=== PATIENT | male | born 1940 | race African-American/Black ===

== ENCOUNTER 2019-09-13 08:43 | Inpatient (IN) ==
[2019-09-13] MEDS ORDERED: CATAPRES PO ONE (09:45)
--- NOTE | 2019-09-13 09:51 | PROVIDER DOCUMENTATION ---
HPI-Screening - General Chief Complaint: B/P Problems Stated Complaint: HIGH BP,DIZZINESS Time Seen by Provider: 09/13/19 09:47 Source: patient, family Allergies/Adverse Reactions: Allergies Allergy/AdvReac Type Severity Reaction Status Date / Time No Known Allergies Allergy Verified 01/12/13 12:01 Home Medications: Home Medication List Medication Instructions Recorded Confirmed Last Taken Type Amlodipine [Norvasc] 2.5 mg PO DAILY 01/12/13 01/12/13 Unknown History Diclofenac Potassium [Cataflam] 50 mg PO TID 01/12/13 01/12/13 Unknown History Methylprednisolone [Medrol Dosepak] 4 mg PO DIRECTED 01/12/13 01/12/13 Unknown History Omeprazole [Prilosec] 20 mg PO DAILY@0700 01/12/13 01/12/13 Unknown History SIMVAstatin [Zocor] 20 mg PO QHS 01/12/13 01/12/13 Unknown History Patient arrived via EMS?: No HPI: Pt. is 79 yom that presents with c/o HTN, blurred vision. He reports he went to [facility] and his blood pressure was high even after taking his medications. Physical Exam-Screening - CONSTITUTIONAL General Appearance: alert, no apparent distress, thin. negative: lethargic, slow to respond, combative - EYES Eyes: PERRL/EOMI, pink conjunctivae - RESPIRATORY Respiratory: lungs clear, normal breath sounds - MUSCULOSKELETAL Back Exam: normal inspection, no CVA tenderness Extremity: normal range of motion, non-tender, normal gait, normal inspection. negative: erythema, swelling, tenderness Peripheral Pulses: radial (R): 2+, radial (L): 2+ - SKIN Integumentary: normal color, normal turgor, warm/dry - NEUROLOGIC Neurologic: grossly normal, no motor/sensory deficits. negative: aphasia, facial droop, focal weakness, motor weakness, sensory deficit Screening Depart - Departure ED Screening Disposition: Continued in ED for Treatment Date of Disposition Decision: 09/13/19 Time of Disposition Decision: 09:50 DIAGNOSIS: HTN (hypertension) Qualifiers: Hypertension type: essential hypertension Qualified Code(s): I10 - Essential (primary) hypertension Disposition: STILL A PATIENT 30 Certified Medical Emergency: Emergent Condition: Stable Referrals and Follow-Ups: Nikki Ramos MD [Primary Care Provider] - Attestation - Physician/ BERT Attestation Patient care was provided by Advanced Practice Provider:: Yes Advanced Practice Provider:: Aleida Newsome Advanced Practice Provider documentation review:: The Mid-level provider documentation, treatment plan and medical decision making was reviewed by the physician who agrees with all treatment and medical decision making by the MLP. The physician spent face to face time with patient:: No Advanced Practice Provider documentation review:: Supervising physician onsite and consulted in the evaluation and care of this patient. The physician did not have a face to face encounter with the patient.
[2019-09-13 10:31] LABS: URINE SOURCE CLEAN CATCH
[2019-09-13 10:33] LABS: BILIRUBIN URINE NEGATIVE (NEGATIVE); BLOOD URINE NEGATIVE (NEGATIVE); COLOR YELLOW; GLUCOSE URINE NEGATIVE (NEGATIVE); KETONE URINE NEGATIVE (NEGATIVE); LEUKOCYTES URINE NEGATIVE (NEGATIVE); NITRITE URINE NEGATIVE (NEGATIVE); PH URINE 6.5; PROTEIN URINE TRACE mg/dL (NEGATIVE); SP GRAVITY URINE 1.026; TURBIDITY URINE CLEAR (CLEAR); UROBILINOGEN URINE NORMAL (NORMAL)
[2019-09-13 10:35] LABS: UR EPITHELIAL CELLS <10 /HPF (<10); URINE BACTERIA NEGATIVE /HPF; URINE RBC <10 /HPF (<10); URINE WBC <10 /HPF (<10)
[2019-09-13 10:36] LABS: BASO# 0.03 X1000 (0.0-0.2); BASO% 0.5 % (0.0-0.8); EOS# 0.17 X1000 (0.0-0.7); HEMATOCRIT 35.3 % (42.0-52.0); HEMOGLOBIN 11.1 g/dL (14.0-18.0); LYMPH% 28.3 % (20.5-51.1); MCH 26.9 PG (27-31); MCHC 31.4 g/dL (33-37); MCV 85.5 FL (81-99); MONO# 0.39 X1000 (0.11-0.59); MONO% 6.9 % (1.7-9.3); NEUT# 3.46 X1000 (1.4-6.5); NEUT% 61.3 % (42.2-75.2); PLT 325 X1000 (130-400); RBC 4.13 XMIL (4.7-6.1); RDW 13.8 % (11.5-14.5); WBC 5.65 X1000 (4.8-10.8)
[2019-09-13 11:05] LABS: AGAP 14; ALB/GLOB RATIO 1.5; ALBUMIN 4.6 g/dL (3.5-5.0); ALKALINE PHOSPHATASE 160 U/L (32-122); BUN 17 mg/dL (8-22); CALCIUM 9.4 mg/dL (8.8-10.2); CHLORIDE 103 mmol/L (98-107); CK PROFILE 109 U/L (24-204); COSMO 285; ESTIMATED GFR > 60; GLUCOSE 99 mg/dL (70-104); GOT 19 U/L (10-34); GPT 22 U/L (10-44); SODIUM 142 mmol/L (136-145); TCO2 25 mmol/L (25-35); TOTAL BILIRUBIN 0.38 mg/dL (0.20-1.00); TOTAL PROTEIN 7.7 g/dL (6.3-8.3)
--- NOTE | 2019-09-13 11:42 | EKG Report ---
Test Performed on : 09/13/2019 08:58:22 AM Test Reason : ED. No order in [place] Blood Pressure : / mmHG Vent. Rate : 067 BPM Atrial Rate : 067 BPM P-R Int : 144 ms QRS Dur : 078 ms QT Int : 376 ms P-R-T Axes : 062 043 -75 degrees QTc Int : 397 ms Normal sinus rhythm. T wave abnormality, consider inferior ischemia T wave abnormality, consider anterolateral ischemia Abnormal ECG When compared with ECG of 12-JAN-2013 11:08, No significant change was found Unconfirmed Result
--- NOTE | 2019-09-13 12:52 | Diag Imaging Result Doc PS360 ---
CT HEAD W/O CONTRAST - 09/13/2019 INDICATION: blurred vision COMPARISON: 02/06/2012 FINDINGS: There has been clear worsening in the diffuse periventricular white matter chronic microvascular ischemia since the prior exam. Stable old lacunar in the superior right basal ganglia. No intracranial mass or hemorrhage. The skull is intact. The sinuses, mastoids, and middle ears are clear. IMPRESSION: Severe worsening in chronic microvascular ischemia. No acute process. This exam was performed using automated exposure control, adjustment of mA or kV according to patient size, and/or use of iterative reconstruction technique Electronically signed by Samy Monge 09/13/2019 12:49 PM
[2019-09-13] MEDS ORDERED: NORVASC PO ONE (13:45)
--- NOTE | 2019-09-13 14:01 | PROVIDER DOCUMENTATION ---
This chart was entered by Anne Gunn Scribe, acting as scribe for Cleve Valiente MD. HPI-Cardiac General - General Chief Complaint: B/P Problems Stated Complaint: HIGH BP,DIZZINESS Time Seen by Provider: 09/13/19 09:47 Source: patient Allergies/Adverse Reactions: Patient Allergies Allergy/AdvReac Type Severity Reaction Status Date / Time celecoxib [From Celebrex] AdvReac Unknown Verified 09/13/19 10:39 Home Medications: Home Medication List Medication Instructions Recorded Confirmed Last Taken Type Amlodipine [Norvasc] 2.5 mg PO BID 01/12/13 09/13/19 09/13/19 History Diclofenac Potassium [Cataflam] 50 mg PO TID 01/12/13 09/13/19 09/13/19 History Omeprazole [Prilosec] 20 mg PO DAILY@0700 01/12/13 09/13/19 09/13/19 History SIMVAstatin [Zocor] 20 mg PO QHS 01/12/13 09/13/19 09/12/19 History Tamsulosin [Flomax] 1 cap PO DAILY 09/13/19 09/13/19 09/13/19 History - History of Present Illness-Cardiac Nature of Presenting Problem: 79yom presents to ED cc elevated b/p, headache, nausea and dizziness since yesterday. Pt reports he went to [facility] this morning to check b/p and it was 201/95 so he came to ED. Pt denies CP/V or parethesia. Pt has hx of HTN, CVA and colon cancer. Pt denies missing any doses of blood pressure meds. Upon exam b/p 194/96 and pt is no acute distress. Quality of Pain: reports: none Severity in ED: moderate Onset/Duration: 24 hours ago Timing: still present Context/Activities at Onset: reports: light activity Modifying Factors: improves with: nothing Palpitation Quality: N/A History of arrythmia: reports: none Nitro Today/Relief: reports: no nitro taken today Aspirin Treatment Today: reports: no aspirin today Associated Symptoms: reports: dizziness, nausea Similar Symptoms Previously?: No Recently Seen Here or By Another Healthcare Provider: No Review of Systems - Adult - REVIEW OF SYSTEMS - ADULT Constitutional: reports: see HPI. denies: chills, fever, fatique Eyes: reports: no symptoms reported Ears, Nose, Mouth & Throat: reports: no symptoms reported Cardiovascular: reports: see HPI, other (elevated b/p). denies: chest pain Respiratory: reports: no symptoms reported Gastrointestinal: reports: see HPI, nausea. denies: vomiting Genitourinary: reports: no symptoms reported Musculoskeletal: reports: no symptoms reported Integumentary: reports: no symptoms reported Neurological: reports: see HPI, dizziness/vertigo, headache/migraines. denies: paresthesia Psychiatric: reports: no symptoms reported Endocrine: reports: no symptoms reported Hematologic/Lymphatic: reports: no symptoms reported Allergic/Immunologic: reports: no symptoms reported All Other Systems: Reviewed and Negative Past History - Adult - PAST MEDICAL HISTORY-ADULT Review of Records: reports: Old Records Reviewed, Nursing Assessment Review, Medications Reviewed, Social history reviewed & non-contributory. Major Childhood Illnesses: reports: denies history Cardiovascular: reports: denies history Respiratory: reports: denies history Gastrointestinal: reports: denies history Obstetrical/Gynecological: reports: denies history Genitourinary: reports: denies history Musculoskeletal: reports: denies history Neurological: reports: denies history Endocrine/Immune: reports: denies history Other Conditions: reports: denies history - IMMUNIZATION STATUS Childhood Immunizations: See Nurse Assessment Flu Vaccine: See Nurse Assessment - FAMILY HISTORY Family History: reviewed, not pertinent Physical Exam-General - PHYSICAL EXAM-ADULT Initial Vital Signs Reviewed: Yes - CONSTITUTIONAL General Appearance: appears well, alert, no apparent distress. negative: anxious, combative - EYES Eyes: PERRL/EOMI, pink conjunctivae - HEAD, EARS, NOSE, MOUTH & THROAT HENMT: normocephalic/atraumatic, moist mucous membranes. negative: angioedema - NECK Neck: non-tender, normal inspection. negative: C-spine tenderness - RESPIRATORY Respiratory: chest non-tender, lungs clear, normal breath sounds. negative: wheezing - CARDIOVASCULAR Cardiovascular: normal peripheral pulses, regular rate, rhythm, no edema. negative: bradycardia, tachycardia - GASTROINTESTINAL (ABDOMEN) Abdominal Exam: normal bowel sounds, non tender, soft. negative: rebound - MUSCULOSKELETAL Back Exam: normal inspection, no CVA tenderness, no vertebral tenderness Extremity: normal range of motion, normal inspection, normal capillary refill. negative: deformity - SKIN Integumentary: normal color. negative: diaphoresis, jaundice - PSYCHIATRIC Psych/Mental Status: normal mood/affect, oriented x 3. negative: anxious, disheveled - HEART Score HEART Score: History: Highly Suspicious HEART Score: ECG: Non-Specific Repolarization Disturbance/LBBB/PM HEART Score: Age: > or = 65 Years HEART Score: Risk Factors for Atherosclerotic Disease: 1 or 2 Risk Factors HEART Score: Troponin: < or = Normal Limit Total HEART Score:: 6 Progress - PLAN OF CARE/RESULTS Progress/Plan/Lab Results: Vital Signs - 8 hr 09/13/19 08:49 09/13/19 10:34 Temperature 97.4 F L Pulse Rate 73 Respiratory Rate 14 Blood Pressure 194/92 162/85 O2 Sat by Pulse Oximetry 100 Laboratory Results - last 24 hr 09/13/19 09/13/19 09/13/19 09:57 09:57 09:57 WBC 5.65 RBC 4.13 L Hgb 11.1 L Hct 35.3 L MCV 85.5 MCH 26.9 L MCHC 31.4 L RDW Std Deviation 13.8 Plt Count 325 MPV 10.0 Immature Gran % (Auto) 0.0 Neut % (Auto) 61.3 Lymph % (Auto) 28.3 Gall[place] % (Auto) 6.9 Eos % (Auto) 3.0 Baso % (Auto) 0.5 Immature Gran # (Auto) 0.00 Neut # (Auto) 3.46 Lymph # (Auto) 1.60 Gall[place] # (Auto) 0.39 Eos # (Auto) 0.17 Baso # (Auto) 0.03 Sodium 142 Potassium 4.0 Chloride 103 Carbon Dioxide 25 Anion Gap 14 BUN 17 Creatinine 1.0 Estimated GFR/1.73 m2 > 60 BUN/Creatinine Ratio 17 Glucose 99 Calculated Osmolality 285 Calcium 9.4 Total Bilirubin 0.38 AST 19 ALT 22 Alkaline Phosphatase 160 H Creatine Kinase 109 Troponin T < 0.010 Total Protein 7.7 Albumin 4.6 Globulin 3.1 Albumin/Globulin Ratio 1.5 Urine Source Urine Color Urine Turbidity Urine pH Ur Specific [place] Urine Protein Ur Glucose (Stick) Ur Ketones (Stick) Urine Blood Urine Nitrite Urine Bilirubin Urobilinogen Dipstick Urine Leukocytes Urine WBC (Auto) Urine RBC (Auto) U Epithel Cells (Auto) Urine Bacteria (Auto) 09/13/19 09:57 WBC RBC Hgb Hct MCV MCH MCHC RDW Std Deviation Plt Count MPV Immature Gran % (Auto) Neut % (Auto) Lymph % (Auto) [place] % (Auto) Eos % (Auto) Baso % (Auto) Immature Gran # (Auto) Neut # (Auto) Lymph # (Auto) [place] # (Auto) Eos # (Auto) Baso # (Auto) Sodium Potassium Chloride Carbon Dioxide Anion Gap BUN Creatinine Estimated GFR/1.73 m2 BUN/Creatinine Ratio Glucose Calculated Osmolality Calcium Total Bilirubin AST ALT Alkaline Phosphatase Creatine Kinase Troponin T Total Protein Albumin Globulin Albumin/Globulin Ratio Urine Source CLEAN CATCH Urine Color YELLOW Urine Turbidity CLEAR Urine pH 6.5 Ur Specific [place] 1.026 Urine Protein TRACE A Ur Glucose (Stick) NEGATIVE Ur Ketones (Stick) NEGATIVE Urine Blood NEGATIVE Urine Nitrite NEGATIVE Urine Bilirubin NEGATIVE Urobilinogen Dipstick NORMAL Urine Leukocytes NEGATIVE Urine WBC (Auto) <10 Urine RBC (Auto) <10 U Epithel Cells (Auto) <10 Urine Bacteria (Auto) NEGATIVE Orders Category Date Time Status CT HEAD W/O CONTRAST [CT] Stat Exams 09/13/19 09:45 Completed CBC WITH ELECTRONIC DIFF [HEME] Stat Lab 09/13/19 09:57 Completed CK PROFILE [SP CHEM] Stat Lab 09/13/19 09:57 Completed COMPREHENSIVE METABOLIC PANEL [CHEM] Stat Lab 09/13/19 09:57 Completed TROPONIN T Stat Lab 09/13/19 09:57 Completed URINALYSIS W/POSS RFLX CULT [URINALYSIS] Stat Lab 09/13/19 09:57 Completed Amlodipine [Norvasc] Med 09/13/19 13:45 Discontinued 5 mg PO NOW ONE Clonidine [Catapres] Med 09/13/19 09:45 Discontinued 0.2 mg PO NOW ONE EKG [EKG] Stat Ther 09/13/19 08:58 Draft Result Diagrams: 09/13/19 09:57 09/13/19 09:57 - EKG 1 Time of EKG reading by physician:: 08:58 EKG Read and Signed by:: Cleve Valiente EKG Interpretation (*Must complete 3 of following elements*): Abnormal (T wave abnormality, consider inferior ischemia and anterolateral ischmeia) Rate: 67 Rhythm: NSR QRS: normal WI Interval: normal - CT/MRI 1 CT Study: Head Impression: See EMR Report (IMPRESSION: Severe worsening in chronic microvascular ischemia. No acute process. This exam was performed using automa lucrecia exposure control, adjustment of mA or kV according to patient size, and/or use of iterative reconstruction technique Electronically signed by Samy Monge 09/13/2019 12:49 PM 09/13/19 [id number]) - CONSULTS/PCP/HOSPITALIST Notification #1 *Consult/PCP/Hospitalist*: Dr. Ramos Time Discussed: 13:56 Consult Disposition: Admit (UNDER TIA PROTOCOL) Departure - Departure Date of Disposition Decision: 09/13/19 Time of Disposition Decision: 14:00 DIAGNOSIS: HTN (hypertension) Qualifiers: Hypertension type: essential hypertension Qualified Code(s): I10 - Essential (primary) hypertension Disposition: ADMITTED INPATIENT 09 Certified Medical Emergency: Emergent Condition: Stable Additional Instructions: ED Follow Up Instructions: You have been treated by a care provider in the Emergency Department. These instructions are being provided to you so you can have an understanding of how to care for yourself upon discharge. Upon discharge from the Emergency Department, you are responsible for making arrangements for follow-up care by a physician of your choice. Take all prescribed medications as directed. Return to the Emergency Department immediately for any new or worsening symptoms. You may call the Physician Referral phone number at [phone] to obtain a list of Physicians who are taking new patients. Referrals and Follow-Ups: Nikki Ramos MD [Primary Care Provider] - - Critical Care Note This patient required my direct & personal management of CC.: No Attestation - Physician/ BERT Attestation Patient care was provided by Advanced Practice Provider:: No The physician spent face to face time with patient:: Yes Advanced Practice Provider documentation review:: Supervising physician onsite and consulted in the evaluation and care of this patient. The physician did have a face to face encounter with the patient. This chart was documented by the indicated scribe, (Anne Gunn Scribe) and accurately reflects the services I performed and decisions made by me, Cleve Valiente MD, as attested by the provider's signature.
--- NOTE | 2019-09-13 21:39 | HISTORY AND PHYSICAL ---
CHIEF COMPLAINT: Headache, dizziness, altered mental status. HISTORY OF PRESENT ILLNESS: He is a 79-year-old male. He came to the ER with the above symptoms. The patient has TIA symptoms. CT scan: No hemorrhage, chronic ischemic changes. He had a lacunar stroke in the past. Basically admitted to the hospital for elevated blood pressure, rule out CVA. Upon questioning, the patient has headaches. No speech impediments. No vision problems. No weakness. Waiting to be admitted as an observation. PAST MEDICAL HISTORY: Hemangioma of the liver; hyperlipidemia; hypertension; erectile dysfunction; osteoarthritis of right knee, left hip; prostate cancer; TIA with left lacunar stroke in the past. PAST SURGICAL HISTORY: TURP, right shoulder surgery, right rotator cuff repair, hip replacement of the left hip by Dr. Arron Castillo, bilateral cataract surgery, total knee arthroplasty on the right side. MEDICINES: Casodex 50 mg daily; Lupron shot every 3 months; Mobic 15 daily; Norvasc 2.5 daily; Prilosec 40 daily; simvastatin 20 mg daily; Flomax 0.4 daily; Ultracet as needed; Viagra as directed. ALLERGIES: Reported not known. SOCIAL HISTORY: , 3 children, living in [place]. No smoking, no alcohol. FAMILY HISTORY: Father of stomach cancer at 80. Mother of CA at 67. Sister had stomach cancer. HEALTH MAINTENANCE: Last exam was 10/2018, colonoscopy in 2011. REVIEW OF SYSTEMS: HEENT: No headache, no vision problem. No earache. No sore throat. Neck: No neck pain. No goiter. No lymphadenopathy. No bruit. Cardiopulmonary: No chest pain, shortness of breath, PND, orthopnea. Gastrointestinal: No nausea, vomiting or abdominal pain. No altered bowel habits or bleeding per rectum. Genitourinary: No history of hesitancy, frequency, dysuria, hematuria. No swelling of legs. No joint pain. Neurologic: No focal symptoms or weakness. PHYSICAL EXAMINATION: VITAL SIGNS: Blood pressure is high. Tachycardic. Vitals are stable. HEENT: Atraumatic, normocephalic. Pupils equal and react to light. TMs are normal. Tongue is in midline. NECK: Supple. No lymphadenopathy. No goiter. CHEST: Bilateral air entry. HEART: Sounds are regular. No murmur. ABDOMEN: Belly is soft, nontender. Good bowel sounds. No masses palpable. EXTREMITIES: No peripheral edema or cyanosis. NEUROLOGIC: No obvious deficits. LABORATORY DATA: White cell count 5.6, hematocrit 35, platelets 325,000. SMA 7 is normal. LFTs were normal. Creatinine, CK, troponin were normal. Urinalysis is clear. DIAGNOSTIC DATA: CT head reported severe worsening of chronic microvascular ischemia; no acute process. EKG: Normal sinus, nothing acute. ASSESSMENT AND PLAN: 1. A 79-year-old male admitted to the hospital with transient ischemic attack symptoms, headache and dizziness, and mental confusion. We will get MRI of the brain, carotid Doppler. Continue on aspirin, amlodipine for blood pressure and Zocor. 2. Reconcile home medicines and follow up on lipid profile. Continue neurologic checks every 2 hours. 3. Prostate cancer basically, status post transurethral resection of the prostate, on Casodex and Lupron shot, under care of urologist in [place], Dr. Gonzalez. Discussed the plan of care. Based on that we will follow up. cc: Bony Ramos MD MTD
[2019-09-13] MEDS ORDERED: ZOCOR PO SCH (22:30)
[2019-09-13] MEDS: NORVASC PO SCH (23:09)
[2019-09-14] MEDS: PRILOSEC PO SCH ×2 (04:59→06:18)
[2019-09-14 06:55] LABS: BASO# 0.04 X1000 (0.0-0.2); BASO% 0.6 % (0.0-0.8); EOS# 0.26 X1000 (0.0-0.7); EOS% 3.8 % (0.0-10.0); HEMATOCRIT 33.9 % (42.0-52.0); HEMOGLOBIN 10.7 g/dL (14.0-18.0); LYMPH# 1.43 X1000 (1.2-3.4); LYMPH% 20.8 % (20.5-51.1); MCH 26.7 PG (27-31); MCHC 31.6 g/dL (33-37); MCV 84.5 FL (81-99); MONO% 7.3 % (1.7-9.3); MPV 9.8 FL (7.4-10.4); NEUT# 4.66 X1000 (1.4-6.5); NEUT% 67.5 % (42.2-75.2); PLT 318 X1000 (130-400); RBC 4.01 XMIL (4.7-6.1); RDW 13.5 % (11.5-14.5); WBC 6.89 X1000 (4.8-10.8)
[2019-09-14 07:06] LABS: HEMOGLOBIN A1C 6.2 % (4.8-6.0)
[2019-09-14 07:14] LABS: AGAP 15; ALB/GLOB RATIO 1.5; ALBUMIN 4.1 g/dL (3.5-5.0); ALKALINE PHOSPHATASE 149 U/L (32-122); BUN 13 mg/dL (8-22); CALCIUM 9.2 mg/dL (8.8-10.2); CHLORIDE 104 mmol/L (98-107); CHOLESTEROL 190 mg/dL (0-200); COSMO 287; CREATININE 0.9 mg/dL (0.7-1.2); ESTIMATED GFR > 60; GLUCOSE 104 mg/dL (70-104); GOT 20 U/L (10-34); GPT 20 U/L (10-44); HDL 67 mg/dL (35-55); LDL 104 mg/dL; POTASSIUM 4.1 mmol/L (3.5-5.1); SODIUM 144 mmol/L (136-145); TCO2 25 mmol/L (25-35); TOTAL BILIRUBIN 0.47 mg/dL (0.20-1.00); TOTAL PROTEIN 6.8 g/dL (6.3-8.3); TRIGLYCERIDES 94 mg/dL (39-160); VLDL 19 mg/dL
--- NOTE | 2019-09-14 07:59 | EKG Report ---
Test Performed on : 09/14/2019 06:56:54 AM Test Reason : cp Blood Pressure : / mmHG Vent. Rate : 060 BPM Atrial Rate : 060 BPM P-R Int : 152 ms QRS Dur : 082 ms QT Int : 434 ms P-R-T Axes : 069 067 -79 degrees QTc Int : 434 ms Normal sinus rhythm. T wave abnormality, consider inferolateral ischemia Abnormal ECG When compared with ECG of 13-SEP-2019 08:58, (Unconfirmed) No significant change was found Confirmed by Richard JUNIOR, P.J.M ([id number]) on 09/14/2019 7:58:35 PM
[2019-09-14] MEDS: NORVASC PO SCH (08:26)
[2019-09-14] MEDS ORDERED: FLOMAX PO SCH (09:00)
--- NOTE | 2019-09-14 10:13 | Diag Imaging Result Doc PS360 ---
MRI BRAIN W/WO CONTRAST - 09/14/2019 INDICATION: CVA COMPARISON: Head CT 09/13/2019 FINDINGS: There is no area of restricted diffusion. The ventricles and sulci are normal in size and contour. No intracranial mass or hemorrhage. There is no abnormal contrast enhancement. There is moderately advanced cerebral white matter gliosis compatible with chronic microvascular ischemia. There is also an old lacunar in the left rowe radiata. IMPRESSION: Old ischemic changes of the brain. No acute process. Electronically signed by Samy Monge 09/14/2019 10:10 AM
[2019-09-14 12:14] VITALS: BP 132/74
--- NOTE | 2019-09-15 11:55 | Carotid Study ---
DATE: 09/13/2019 PROCEDURE: Bilateral duplex and color flow imaging of the carotid arteries performed using a GE Vivid E9 Ultrasound System with a 9L-D transducer. REFERRING PHYSICIAN: Jake Ramos MD. INTERPRETING PHYSICIAN: Leila Cruz MD. LIME KILN OPERATOR: Mackenzie Bird RVT. INDICATIONS: Syncope. FINDINGS: The velocities in cm/sec of both carotid systems were reviewed. The right ICA/CCA ratio is 0.78 corresponding to percent stenosis of 0-39%. The left ICA/CCA ratio is 0.82 corresponding to percent stenosis of 0-39%. PHYSICIAN INTERPRETATION: Mild atherosclerotic disease of the distal common and internal carotid arteries bilaterally without evidence of a hemodynamically significant lesion in either carotid system. cc: MD Bony Porras MD
--- NOTE | 2019-09-17 20:11 | DISCHARGE SUMMARY ---
ADMISSION DATE: 09/13/2019 DISCHARGE DATE: 09/14/2019 DISCHARGING DIAGNOSES: 1. Headache. Dizziness.Altered mental status due to elevated blood pressure. 2. Glucose intolerance, A1c 6.2. SECONDARY DIAGNOSES: 1. Hyperlipidemia. 2. Hypertension. 3. Osteoarthritis of the right knee. 4. Prostate cancer, under hormonal treatment. 5. History of transient ischemic attack with left lacunar stroke in the past. BRIEF HISTORY: Please see the H and P that was done on September 13. In brief, he is a 79-year- old male who came in with a blood pressure of 180/100, assessed with headache, altered mental status, nausea. CT scan showed chronic microvascular ischemic changes. Admitted to the hospital for observation for TIA. HOSPITAL COURSE: Neurological exam was intact. Carotid Doppler studies reported no hemodynamic stenosis in either internal carotid system. Antegrade flow in both vertebral arteries noted. MRI of the brain: Chronic ischemic changes. No acute process. LABS: CBC: White cell count 6.8, hematocrit 33.9, platelets 318. SMA 7 is normal. A1c 6.2. Cholesterol 119, LDL 104, HDL 67. Urinalysis is clear. DISCHARGE MEDICATIONS: Simvastatin 20 daily, amlodipine 2.5 p.o. b.i.d., Prilosec 20 daily, Cataflam 50 t.i.d., Flomax 0.4 daily. He is getting a Lupron shot every 3 months from the urology office in [place], and will follow up on PSA. FOLLOWUP: Follow up in my office in 2 weeks for blood pressure and glucose intolerance. cc: Bony Ramos MD MTDD
== END 2019-09-14 15:25 | disposition home or self-care (01) | DRG 305 ==
LOC: ED 08:43 → 4N 08:43 → OBSVTOIN 21:34
PROVIDERS: ADMIT Internal Medicine; ATTEND Internal Medicine